=== PATIENT | female | born 1970 | race Caucasian/White ===

== ENCOUNTER 2017-01-11 12:54 | Emergency (ER) | payer BC ==
[~2017-01-11] VITALS: Ht 152.4 cm; Wt 106.8 kg
[~2017-01-11 12:54] MED LIST: BABY ASPIRIN81 M1 PO; BENADRYL25 MG PO; CELEXA; CELEXA20 MG PO; GLYBURIDE; GLYBURIDE5 MG PO; IMODIUM MS REL1 EACH PO; LIPITOR10 MG PO; METFORMIN PO; PEPCID40 MG PO; PERCOCET 5/31 TABLET PO; PREDNISONE20 MG PO; ZOFRAN4 MG PO
[2017-01-11 14:22] LABS: EOSINOPHIL (%) 1.8 % (0-5); EOSINOPHIL COUNT 0.1 K/uL (0-0.3); IMMATURE GRANULOCYTE (%) 0.6 % (0.0-0.7); INSTRUMENT ABS NEUTROPHIL CT 5.2 K/uL; LYMPHOCYTE COUNT 1.5 K/uL (1.0-2.8); MCH 28.4 PG (29.0-34.0); MCHC 32.4 G/DL (30.0-36.0); MCV 87.8 FL (83-99); MEAN PLAT.VOLUME 10.5 uM^3 (9.5-12.4); MONOCYTE (%) 4.6 % (3-12); MONOCYTE COUNT 0.3 K/uL (0-0.8); NEUTROPHIL (%) 71.4 % (45-76); NEUTROPHIL COUNT 5.2 K/uL (1.8-6.4); PLATELET COUNT 307 K/uL (156-360); RBC DIS.WIDTH-CV 13.2 % (11.8-14.6); RED BLOOD COUNT 4.33 M/uL (3.80-5.20); WHITE BLOOD COUNT 7.2 K/uL (4.1-10.2)
[2017-01-11 14:33] LABS: CHLORIDE 107 mEq/L (99-109); POTASSIUM 3.9 mEq/L (3.7-5.4); SODIUM 141 mEq/L (136-147)
[2017-01-11 14:34] LABS: GLUCOSE 229 mg/dL (70-99)
[2017-01-11 14:36] LABS: ANION GAP 11 MEQ/L (2-14)
[2017-01-11 14:38] LABS: GFR ESTIMATE (CALCULATED) > 59 mL/min/
[2017-01-11 14:39] LABS: UREA NITROGEN (BUN) 13 mg/dL (9-23)
[2017-01-11] MEDS ORDERED: BACTRIM,SEPT1 TABLET PO (14:54)
[2017-01-11 15:27] VITALS: BP 123/69
[2017-01-13] MEDS ORDERED: BACTRIM,SEPT1 TABLET PO (17:38)
== END 2017-01-11 15:35 | disposition home or self-care (01) ==
LOC: EME 12:54 → RME 12:54
PROVIDERS: Physician Assistant
DX: L02.31 Cutaneous abscess of buttock (principal); L03.317 Cellulitis of buttock; E11.9 Type 2 diabetes mellitus without complications; Z79.84 Long term (current) use of oral hypoglycemic drugs
CPT/HCPCS: 80048; 85025; 99281; 99284; J0696; J7050

== ENCOUNTER 2017-06-19 09:04 | Inpatient (IN) | payer BC ==
[~2017-06-19] VITALS: Ht 152.4 cm; Wt 107.8 kg
[~2017-06-19 09:04] MED LIST changes: +BACTRIM,SEPT1 TABLET PO; +GLUCOPHAGE1000 MG PO; -METFORMIN PO
[2017-06-19 10:06] LABS: EOSINOPHIL (%) 0.5 % (0-5); EOSINOPHIL COUNT 0.1 K/uL (0-0.3); HEMATOCRIT 35.4 % (36.0-46.0); IMMATURE GRANULOCYTE (%) 0.6 % (0.0-0.7); IMMATURE GRANULOCYTE COUNT 0.1 K/uL; INSTRUMENT ABS NEUTROPHIL CT 8.7 K/uL; LYMPHOCYTE COUNT 1.2 K/uL (1.0-2.8); MCH 28.5 PG (29.0-34.0); MCHC 32.2 G/DL (30.0-36.0); MCV 88.5 FL (83-99); MEAN PLAT.VOLUME 10.1 uM^3 (9.5-12.4); MONOCYTE COUNT 0.6 K/uL (0-0.8); NEUTROPHIL (%) 81.8 % (45-76); NEUTROPHIL COUNT 8.7 K/uL (1.8-6.4); PLATELET COUNT 223 K/uL (156-360); RBC DIS.WIDTH-CV 13.4 % (11.8-14.6); RBC DIS.WIDTH-SD 43.6 % (39-53); WHITE BLOOD COUNT 10.7 K/uL (4.1-10.2)
[2017-06-19 10:15] LABS: CHLORIDE 99 mEq/L (99-109); POTASSIUM 3.5 mEq/L (3.7-5.4); SODIUM 134 mEq/L (136-147)
[2017-06-19 10:17] LABS: GLUCOSE 318 mg/dL (70-99)
[2017-06-19 10:18] LABS: ANION GAP 13 MEQ/L (2-14)
[2017-06-19 10:21] LABS: GFR ESTIMATE (CALCULATED) > 59 mL/min/
[2017-06-19 10:22] LABS: UREA NITROGEN (BUN) 6 mg/dL (9-23)
[2017-06-19 11:19] LABS: ADD MIUA? YES; BILIRUBIN NEGATIVE; BLOOD SMALL; COLOR YELLOW ((YELLOW)); GLUCOSE (STRIP) >=500; KETONES 5; LEUKOCYTES NEGATIVE; NITRITE NEGATIVE; PROTEIN (STRIP) NEGATIVE; SPECIFIC GRAVITY 1.035 (1.000-1.030); UROBILINOGEN 0.2 MG/DL (0.2-1.0)
[2017-06-19 11:34] LABS: EPITHELIAL CELLS 1+ /HPF
[2017-06-19 11:35] LABS: BACTERIA NONE SEEN /HPF; CASTS NONE SEEN /LPF; CRYSTALS NONE SEEN; MUCUS NONE SEEN /LPF; OTHER BUDDING YEAST RARE; RED BLOOD CELLS RARE /HPF (0-5); UCUL ADDED? NO; WHITE BLOOD CELLS RARE /HPF (0-5)
[2017-06-19] MEDS ORDERED: ASPIR 8181 M1 PO (16:31)
[2017-06-19] MEDS ORDERED: VITAMIN D31000 UNI2 PO (16:31)
[2017-06-19] MEDS ORDERED: ADVIL,NUPRIN,M200 MG PO (16:32)
[2017-06-19 18:36] VITALS: BP 128/69
[2017-06-19 23:35] VITALS: BP 119/70
[2017-06-20 05:03] VITALS: BP 130/69
[2017-06-20 06:39] LABS: EOSINOPHIL (%) 1.8 % (0-5); EOSINOPHIL COUNT 0.2 K/uL (0-0.3); HEMATOCRIT 31.9 % (36.0-46.0); IMMATURE GRANULOCYTE (%) 0.5 % (0.0-0.7); INSTRUMENT ABS NEUTROPHIL CT 6.7 K/uL; LYMPHOCYTE COUNT 1.3 K/uL (1.0-2.8); MCH 29.1 PG (29.0-34.0); MCHC 32.3 G/DL (30.0-36.0); MCV 90.1 FL (83-99); MEAN PLAT.VOLUME 10.7 uM^3 (9.5-12.4); MONOCYTE (%) 7.3 % (3-12); MONOCYTE COUNT 0.7 K/uL (0-0.8); NEUTROPHIL COUNT 6.7 K/uL (1.8-6.4); PLATELET COUNT 209 K/uL (156-360); RBC DIS.WIDTH-CV 13.6 % (11.8-14.6); RBC DIS.WIDTH-SD 45.1 % (39-53); RED BLOOD COUNT 3.54 M/uL (3.80-5.20); WHITE BLOOD COUNT 8.9 K/uL (4.1-10.2)
[2017-06-20 07:03] LABS: ANION GAP 7 MEQ/L (2-14); CHLORIDE 106 MEQ/L (99-109); GFR ESTIMATE (CALCULATED) > 59 mL/min/; GLUCOSE 142 mg/dL (70-99); POTASSIUM 4.1 MEQ/L (3.7-5.4); SAMPLE HEMOLYSIS CHECK 0; SAMPLE ICTERIC CHECK 0; SAMPLE LIPEMIA CHECK 0; SODIUM 138 MEQ/L (136-147); UREA NITROGEN (BUN) 5 mg/dL (9-23)
[2017-06-20 07:48] VITALS: BP 147/71
[2017-06-20 15:26] VITALS: BP 132/65
[2017-06-20 21:59] LABS: POINT-OF-CARE METER ID UU14208753
[2017-06-20 23:40] VITALS: BP 117/56
[2017-06-21 06:15] LABS: METH RESISTANT S AUREUS PCR NEGATIVE (NEGATIVE)
[2017-06-21 06:19] LABS: PROBE CHECK PASS; SPECIMEN PROCESSING CONTROL PASS
[2017-06-21 08:09] VITALS: BP 126/66
[2017-06-21 12:05] VITALS: BP 138/70
[2017-06-21 16:46] VITALS: BP 137/81
[2017-06-21 16:57] LABS: POINT-OF-CARE METER ID UU14117124
[2017-06-21 19:44] VITALS: BP 132/81
[2017-06-21 23:46] VITALS: BP 128/68
[2017-06-22 03:38] VITALS: BP 133/63
[2017-06-22 06:58] LABS: POINT-OF-CARE METER ID UU14117124
[2017-06-22 08:18] VITALS: BP 111/62
[2017-06-22 11:59] VITALS: BP 121/65
[2017-06-22 16:05] VITALS: BP 157/71
[2017-06-22 16:28] LABS: POINT-OF-CARE METER ID UU14117124
[2017-06-22 19:20] VITALS: BP 141/77
[2017-06-22 21:28] LABS: POINT-OF-CARE METER ID UU14117124
[2017-06-23] VITALS (8 sets, daily range): BP systolic 123–163; BP diastolic 7–92
[2017-06-23 05:18] LABS: POINT-OF-CARE METER ID UU13113725
[2017-06-23 08:44] LABS: Estimated Average Glucose 214 mg/dL (70-123); HEMOGLOBIN A1c (GLYCOHEMOGLOB) 9.1 % HGB (Below 5.7)
[2017-06-23 11:51] LABS: POINT-OF-CARE METER ID UU13113774
[2017-06-23 16:25] LABS: POINT-OF-CARE METER ID UU13113725
[2017-06-23 21:36] LABS: POINT-OF-CARE METER ID UU13113725
[2017-06-24 04:42] VITALS: BP 105/59
[2017-06-24 06:29] LABS: POINT-OF-CARE METER ID UU13113725
[2017-06-24 06:46] LABS: EOSINOPHIL (%) 4.1 % (0-5); EOSINOPHIL COUNT 0.2 K/uL (0-0.3); HEMATOCRIT 33.4 % (36.0-46.0); IMMATURE GRANULOCYTE (%) 3.5 % (0.0-0.7); IMMATURE GRANULOCYTE COUNT 0.2 K/uL; INSTRUMENT ABS NEUTROPHIL CT 2.9 K/uL; LYMPHOCYTE COUNT 1.4 K/uL (1.0-2.8); MCH 28.8 PG (29.0-34.0); MCV 89.8 FL (83-99); MEAN PLAT.VOLUME 10.1 uM^3 (9.5-12.4); MONOCYTE COUNT 0.4 K/uL (0-0.8); NEUTROPHIL (%) 57.4 % (45-76); NEUTROPHIL COUNT 2.9 K/uL (1.8-6.4); RBC DIS.WIDTH-CV 13.4 % (11.8-14.6); RBC DIS.WIDTH-SD 44.3 % (39-53); RED BLOOD COUNT 3.72 M/uL (3.80-5.20); WHITE BLOOD COUNT 5.1 K/uL (4.1-10.2)
[2017-06-24 07:09] LABS: ANION GAP 10 MEQ/L (2-14); CHLORIDE 101 MEQ/L (99-109); GFR ESTIMATE (CALCULATED) > 59 mL/min/; GLUCOSE 116 mg/dL (70-99); POTASSIUM 4.3 MEQ/L (3.7-5.4); SAMPLE HEMOLYSIS CHECK 0; SAMPLE ICTERIC CHECK 0; SAMPLE LIPEMIA CHECK 0; SODIUM 138 MEQ/L (136-147); UREA NITROGEN (BUN) 9 mg/dL (9-23)
[2017-06-24 07:30] LABS: PLATELET COUNT 297 K/uL (156-360)
[2017-06-24 09:32] VITALS: BP 140/71
[2017-06-24 11:31] VITALS: BP 124/64
[2017-06-24 11:50] LABS: POINT-OF-CARE METER ID UU13113774
[2017-06-24 17:20] LABS: POINT-OF-CARE METER ID UU13113725
[2017-06-24 21:08] LABS: POINT-OF-CARE METER ID UU13113725
[2017-06-24 23:52] VITALS: BP 136/74
[2017-06-25 06:23] LABS: POINT-OF-CARE METER ID UU13113725; POINT-OF-CARE USER ID 611181321
[2017-06-25 08:09] VITALS: BP 155/80
[2017-06-25 10:59] VITALS: BP 130/64
[2017-06-25 11:49] LABS: POINT-OF-CARE METER ID UU13113725
[2017-06-25 16:35] VITALS: BP 128/63
[2017-06-25 16:53] LABS: POINT-OF-CARE METER ID UU13113774
[2017-06-25 19:49] VITALS: BP 129/68
[2017-06-25 21:26] LABS: POINT-OF-CARE METER ID UU13113774
[2017-06-26 00:29] VITALS: BP 133/66
[2017-06-26 06:26] LABS: POINT-OF-CARE METER ID UU13113725
[2017-06-26 06:29] LABS: POINT-OF-CARE METER ID UU13113774
[2017-06-26 06:37] LABS: HEMATOCRIT 35.2 % (36.0-46.0); MCHC 32.4 G/DL (30.0-36.0); MCV 89.6 FL (83-99); MEAN PLAT.VOLUME 9.7 uM^3 (9.5-12.4); PLATELET COUNT 298 K/uL (156-360); RBC DIS.WIDTH-CV 13.2 % (11.8-14.6); RBC DIS.WIDTH-SD 43.3 % (39-53); RED BLOOD COUNT 3.93 M/uL (3.80-5.20)
[2017-06-26 07:00] LABS: ALKALINE PHOSPHATASE 57 IU/L (3-129); ANION GAP 10 MEQ/L (2-14); CHLORIDE 99 MEQ/L (99-109); GFR ESTIMATE (CALCULATED) > 59 mL/min/; GLUCOSE 103 mg/dL (70-99); POTASSIUM 4.3 MEQ/L (3.7-5.4); SAMPLE HEMOLYSIS CHECK 0; SAMPLE ICTERIC CHECK 0; SAMPLE LIPEMIA CHECK 0; SODIUM 138 MEQ/L (136-147); TOTAL BILIRUBIN 0.4 MG/DL (0.0-1.0); UREA NITROGEN (BUN) 10 mg/dL (9-23)
[2017-06-26 07:27] VITALS: BP 121/58
[2017-06-26 09:47] VITALS: BP 150/92
[2017-06-26 12:34] LABS: POINT-OF-CARE METER ID UU13113675
[2017-06-26 13:39] VITALS: BP 139/71
[2017-06-26 16:08] VITALS: BP 120/57
[2017-06-26 16:14] LABS: POINT-OF-CARE METER ID UU13113725
[2017-06-26 20:15] LABS: POINT-OF-CARE METER ID UU13113725
[2017-06-26 23:36] VITALS: BP 107/50
[2017-06-27 06:36] VITALS: BP 130/73
[2017-06-27 06:44] LABS: POINT-OF-CARE METER ID UU13113774
[2017-06-27 11:38] LABS: POINT-OF-CARE METER ID UU13113774
[2017-06-27 15:02] VITALS: BP 134/72
[2017-06-27] MEDS ORDERED: LINEZOLID600 MG PO (15:20)
[2017-06-27] MEDS ORDERED: KENALOG,ARISTOC80 GM TP (15:27)
[2017-06-27] MEDS ORDERED: OXYCODONE HCL5 MG PO (15:27)
[2017-06-27] MEDS ORDERED: DOXYCYCLINE HY100 MG PO (15:27)
[2017-06-27] MEDS ORDERED: BENADRYL50 MG PO (15:27)
[2017-06-27] MEDS ORDERED: BACTROBAN NASAL1 G1 BOTH NARES (15:28)
== END 2017-06-27 16:07 | disposition home health service (06) | DRG 603 ==
LOC: EME 09:04 → 3EAST 16:45 → EDOF 16:45 → ENRESERV 17:02 → 3EAST 17:57 → ENRESERV 06-23 00:51 → 5EAST 06-23 02:28
PROVIDERS: Family Medicine; Internal Medicine; Internal Medicine Infectious Disease
PROC: 0H97XZZ Drainage of Abdomen Skin, External Approach (ICD-10-PCS; principal; 2017-06-23)
PROC: 0J983ZZ Drainage of Abdomen Subcutaneous Tissue and Fascia, Percutaneous Approach (ICD-10-PCS; 2017-06-26)
DX: L03.311 Cellulitis of abdominal wall (principal); L02.211 Cutaneous abscess of abdominal wall; B95.61 Methicillin susceptible Staphylococcus aureus infection as the cause of diseases classified elsewhere; L02.221 Furuncle of abdominal wall; L02.32 Furuncle of buttock; L73.9 Follicular disorder, unspecified; L27.0 Generalized skin eruption due to drugs and medicaments taken internally; T36.1X5A Adverse effect of cephalosporins and other beta-lactam antibiotics, initial encounter; T36.8X5A Adverse effect of other systemic antibiotics, initial encounter; I10 Essential (primary) hypertension; J44.9 Chronic obstructive pulmonary disease, unspecified; E78.5 Hyperlipidemia, unspecified; E11.9 Type 2 diabetes mellitus without complications; F32.9 Major depressive disorder, single episode, unspecified; E66.01 Morbid (severe) obesity due to excess calories; Z68.42 Body mass index [BMI] 45.0-49.9, adult; Z87.891 Personal history of nicotine dependence; Z87.442 Personal history of urinary calculi; Z79.84 Long term (current) use of oral hypoglycemic drugs; Z79.82 Long term (current) use of aspirin
CPT/HCPCS: 74177; 80048; 80053; 80202; 81003; 82565; 82948; 83036; 83605; 84520; 85025; 85027; 87040; 87070; 87075; 87077; 87147; 87186; 87205; 87641; 94799; 99281; 99284; J0131; J0690; J0744; J1650; J1815; J1956; J2250; J2405; J3010; J3370; J7030; Q0177; S0020

== ENCOUNTER 2017-09-10 16:46 | Emergency (ER) | payer BC ==
[~2017-09-10] VITALS: Ht 152.4 cm; Wt 106.6 kg
[~2017-09-10 16:46] MED LIST changes: +ADVIL,NUPRIN,M200 MG PO; +ASPIR 8181 M1 PO; +BACTROBAN NASAL1 G1 BOTH NARES; +BENADRYL50 MG PO; +DOXYCYCLINE HY100 MG PO; +KENALOG,ARISTOC80 GM TP; +LINEZOLID600 MG PO; +OXYCODONE HCL5 MG PO; +VITAMIN D31000 UNI2 PO
[2017-09-10] MEDS ORDERED: DELTASONE20 M1 PO (18:57)
[2017-09-10] MEDS ORDERED: PEPCID20 MG PO (18:57)
[2017-09-10 19:08] VITALS: BP 150/97
== END 2017-09-10 19:09 | disposition home or self-care (01) ==
LOC: EME 16:46
DX: T78.40XA Allergy, unspecified, initial encounter (principal); Z87.442 Personal history of urinary calculi; J44.9 Chronic obstructive pulmonary disease, unspecified; E11.9 Type 2 diabetes mellitus without complications; I10 Essential (primary) hypertension; E78.5 Hyperlipidemia, unspecified; F32.9 Major depressive disorder, single episode, unspecified; Z79.4 Long term (current) use of insulin; Z87.891 Personal history of nicotine dependence
CPT/HCPCS: 93005; 99281; 99284; J7512; Q0177

== ENCOUNTER 2017-09-27 10:08 | Observation (INO) | payer BC ==
[~2017-09-27] VITALS: Ht 152.4 cm; Wt 104.7 kg
[~2017-09-27 10:08] MED LIST changes: +DELTASONE20 M1 PO; +PEPCID20 MG PO
[2017-09-27 12:00] LABS: HEMATOCRIT 38.8 % (36.0-46.0); HEMOGLOBIN 12.9 G/DL (11.9-15.5); MCH 28.9 PG (29.0-34.0); MCHC 33.2 G/DL (30.0-36.0); MCV 86.8 FL (83-99); PLATELET COUNT 244 K/uL (156-360); RBC DIS.WIDTH-SD 47.8 % (39-53); RED BLOOD COUNT 4.47 M/uL (3.80-5.20); WHITE BLOOD COUNT 6.2 K/uL (4.1-10.2)
[2017-09-27 12:11] LABS: CHLORIDE 108 mEq/L (99-109); POTASSIUM 3.9 mEq/L (3.7-5.4); SODIUM 138 mEq/L (136-147)
[2017-09-27 12:13] LABS: GLUCOSE 178 mg/dL (70-99)
[2017-09-27 12:17] LABS: CREATININE 0.9 mg/dL (0.6-1.3); GFR ESTIMATE (CALCULATED) > 59 mL/min/
[2017-09-27 12:18] LABS: UREA NITROGEN (BUN) 12 mg/dL (9-23)
[2017-09-27 12:22] LABS: TROP-I INTERPRETATION NEGATIVE; TROPONIN-I < 0.01 ng/mL (0.0-0.30)
[2017-09-27] MEDS ORDERED: BENADRYL25 MG PO (14:57)
[2017-09-27 16:27] LABS: TROP-I INTERPRETATION NEGATIVE; TROPONIN-I < 0.01 ng/mL (0.0-0.30)
[2017-09-27 16:31] LABS: HDL CHOLESTEROL 59 MG/DL (Desirable>=50); LDL CHOLESTEROL 148 mg/dL (Desirable<100); NON-HDL CHOLESTEROL 184 mg/dL (Desirable<160); TOTAL CHOLESTEROL 243 mg/dL (Desirable<200); TRIGLYCERIDES 181 MG/DL (Normal: <150)
[2017-09-27 20:33] VITALS: BP 111/63
[2017-09-27 22:24] LABS: TROP-I INTERPRETATION NEGATIVE; TROPONIN-I < 0.01 ng/mL (0.0-0.30)
[2017-09-27 23:43] VITALS: BP 130/73
[2017-09-28 04:38] VITALS: BP 124/63
[2017-09-28 05:36] LABS: TROP-I INTERPRETATION NEGATIVE; TROPONIN-I < 0.01 ng/mL (0.0-0.30)
[2017-09-28 05:42] LABS: HEMOGLOBIN 11.5 G/DL (11.9-15.5); MCHC 31.9 G/DL (30.0-36.0); MCV 87.6 FL (83-99); PLATELET COUNT 224 K/uL (156-360); RBC DIS.WIDTH-CV 14.9 % (11.8-14.6); RBC DIS.WIDTH-SD 47.7 % (39-53); RED BLOOD COUNT 4.11 M/uL (3.80-5.20)
[2017-09-28 05:53] LABS: CHLORIDE 107 MEQ/L (99-109); CREATININE 0.8 MG/DL (0.6-1.3); GFR ESTIMATE (CALCULATED) > 59 mL/min/; GLUCOSE 132 mg/dL (70-99); POTASSIUM 4.1 MEQ/L (3.7-5.4); SODIUM 139 MEQ/L (136-147); UREA NITROGEN (BUN) 14 mg/dL (9-23)
[2017-09-28 05:54] LABS: HDL CHOLESTEROL 43 MG/DL (Desirable>=50); LDL CHOLESTEROL 138 mg/dL (Desirable<100); NON-HDL CHOLESTEROL 189 mg/dL (Desirable<160); TOTAL CHOLESTEROL 232 mg/dL (Desirable<200); TRIGLYCERIDES 257 MG/DL (Normal: <150)
[2017-09-28 08:20] VITALS: BP 133/73
[2017-09-28] MEDS ORDERED: ATORVASTATIN CA40 MG PO (10:47)
[2017-09-28 12:00] VITALS: BP 122/78
[2017-09-28 12:33] LABS: HEMOGLOBIN A1c (GLYCOHEMOGLOB) 8.2 % (Below 5.7)
== END 2017-09-28 14:02 | disposition home or self-care (01) ==
LOC: EME 10:08 → RME 10:08 → 5WEST 14:58 → EDOF 14:58 → ENRESERV 15:03 → 5WEST 19:00
PROVIDERS: Hospitalist
DX: R07.9 Chest pain, unspecified (principal); E66.9 Obesity, unspecified; Z68.42 Body mass index [BMI] 45.0-49.9, adult; E78.5 Hyperlipidemia, unspecified; E11.65 Type 2 diabetes mellitus with hyperglycemia; R06.09 Other forms of dyspnea; Z87.891 Personal history of nicotine dependence; Z90.49 Acquired absence of other specified parts of digestive tract; Z82.5 Family history of asthma and other chronic lower respiratory diseases; Z80.9 Family history of malignant neoplasm, unspecified; Z87.442 Personal history of urinary calculi; Z79.82 Long term (current) use of aspirin
CPT/HCPCS: 71046; 80048; 80061; 82948; 83036; 84484; 85027; 93005; G0378; J1650; J2405; S0028

== ENCOUNTER 2017-10-31 07:14 | Emergency (ER) | payer BC ==
[~2017-10-31] VITALS: Ht 152.4 cm; Wt 106.9 kg
[~2017-10-31 07:14] MED LIST changes: +ATORVASTATIN CA40 MG PO
[2017-10-31 07:40] LABS: HEMATOCRIT 39.3 % (36.0-46.0); HEMOGLOBIN 13.2 G/DL (11.9-15.5); MCH 29.4 PG (29.0-34.0); MCHC 33.6 G/DL (30.0-36.0); MCV 87.5 FL (83-99); PLATELET COUNT 249 K/uL (156-360); RBC DIS.WIDTH-SD 44.8 % (39-53); RED BLOOD COUNT 4.49 M/uL (3.80-5.20); WHITE BLOOD COUNT 8.7 K/uL (4.1-10.2)
[2017-10-31 07:57] LABS: APPEARANCE SL.HAZY ((CLEAR)); BILIRUBIN NEGATIVE; BLOOD LARGE; COLOR YELLOW ((YELLOW)); GLUCOSE (STRIP) >=500; KETONES NEGATIVE; LEUKOCYTES NEGATIVE; NITRITE NEGATIVE; PROTEIN (STRIP) NEGATIVE; SPECIFIC GRAVITY 1.033 (1.000-1.030); UROBILINOGEN 0.2 MG/DL (0.2-1.0)
[2017-10-31 08:02] LABS: CHLORIDE 106 mEq/L (99-109); SODIUM 137 mEq/L (136-147)
[2017-10-31 08:04] LABS: GLUCOSE 307 mg/dL (70-99)
[2017-10-31 08:04] LABS: BACTERIA NONE SEEN /HPF; CALCIUM OXALATE CRYSTALS 1+ /HPF; EPITHELIAL CELLS RARE /HPF; MUCUS TRACE /LPF; RED BLOOD CELLS TNTC /HPF (0-5); UCUL ADDED? YES
[2017-10-31 08:08] LABS: CREATININE 0.9 mg/dL (0.6-1.3); GFR ESTIMATE (CALCULATED) > 59 mL/min/; UREA NITROGEN (BUN) 17 mg/dL (9-23)
[2017-10-31] MEDS ORDERED: METFORMIN HCL1000 MG PO (08:23)
[2017-10-31] MEDS ORDERED: DIABETA5 MG PO (08:23)
[2017-10-31] MEDS ORDERED: FLAGYL500 MG PO (09:24)
[2017-10-31] MEDS ORDERED: TYLENOL WITH C1 EACH PO (09:24)
[2017-10-31] MEDS ORDERED: CIPRO XR 500 M500 M1 PO (09:24)
[2017-10-31] MEDS ORDERED: CIPRO500 MG PO (09:28)
[2017-10-31 09:44] VITALS: BP 113/67
== END 2017-10-31 09:45 | disposition home or self-care (01) ==
LOC: EME 07:14
PROVIDERS: Emergency Medicine
DX: N39.0 Urinary tract infection, site not specified (principal); K57.32 Diverticulitis of large intestine without perforation or abscess without bleeding; N20.0 Calculus of kidney; E11.9 Type 2 diabetes mellitus without complications; J44.9 Chronic obstructive pulmonary disease, unspecified; I10 Essential (primary) hypertension; E78.5 Hyperlipidemia, unspecified; F32.9 Major depressive disorder, single episode, unspecified; Z79.82 Long term (current) use of aspirin; Z79.84 Long term (current) use of oral hypoglycemic drugs; Z87.891 Personal history of nicotine dependence; Z87.442 Personal history of urinary calculi
CPT/HCPCS: 74176; 80048; 81003; 85027; 87086; 99281; 99285; J2270; J2405; J7030

== ENCOUNTER 2017-11-06 18:19 | Emergency (ER) | payer BC ==
[~2017-11-06] VITALS: Ht 152.4 cm; Wt 107.6 kg
[~2017-11-06 18:19] MED LIST changes: +CIPRO XR 500 M500 M1 PO; +CIPRO500 MG PO; +DIABETA5 MG PO; +FLAGYL500 MG PO; +METFORMIN HCL1000 MG PO; +TYLENOL WITH C1 EACH PO
[2017-11-06 18:41] LABS: APPEARANCE CLEAR ((CLEAR)); BILIRUBIN NEGATIVE; BLOOD SMALL; COLOR YELLOW ((YELLOW)); GLUCOSE (STRIP) 150; KETONES NEGATIVE; LEUKOCYTES TRACE; NITRITE NEGATIVE; PROTEIN (STRIP) NEGATIVE; SPECIFIC GRAVITY 1.014 (1.000-1.030); UROBILINOGEN 0.2 MG/DL (0.2-1.0)
[2017-11-06 18:50] LABS: BACTERIA RARE /HPF; EPITHELIAL CELLS RARE /HPF; HYALINE CASTS 0-5 /LPF; MUCUS TRACE /LPF; RED BLOOD CELLS 0-5 /HPF (0-5); UCUL ADDED? NO; WHITE BLOOD CELLS 0-5 /HPF (0-5)
[2017-11-06 18:57] LABS: HEMATOCRIT 35.3 % (36.0-46.0); HEMOGLOBIN 11.8 G/DL (11.9-15.5); MCH 28.9 PG (29.0-34.0); MCHC 33.4 G/DL (30.0-36.0); MCV 86.3 FL (83-99); PLATELET COUNT 234 K/uL (156-360); RBC DIS.WIDTH-CV 13.4 % (11.8-14.6); RBC DIS.WIDTH-SD 42.3 % (39-53); RED BLOOD COUNT 4.09 M/uL (3.80-5.20); WHITE BLOOD COUNT 6.7 K/uL (4.1-10.2)
[2017-11-06 19:10] LABS: ALBUMIN 3.8 g/dL (3.2-4.8); CHLORIDE 103 mEq/L (99-109); POTASSIUM 3.7 mEq/L (3.7-5.4); SODIUM 139 mEq/L (136-147)
[2017-11-06 19:12] LABS: GLUCOSE 215 mg/dL (70-99)
[2017-11-06 19:13] LABS: TOTAL PROTEIN 6.6 g/dL (6.4-8.3)
[2017-11-06 19:14] LABS: TOTAL BILIRUBIN 0.4 mg/dL (0.0-1.0)
[2017-11-06 19:16] LABS: ALKALINE PHOSPHATASE 67 IU/L (3-129); GFR ESTIMATE (CALCULATED) 34 mL/min/
[2017-11-06 19:17] LABS: UREA NITROGEN (BUN) 19 mg/dL (9-23)
[2017-11-06 19:18] LABS: AST (GOT) 17 IU/L (2-34)
[2017-11-06 19:19] LABS: ALT (GPT) 14 IU/L (3-49)
[2017-11-06 19:21] LABS: CREATININE 1.7 mg/dL (0.6-1.3)
[2017-11-06 19:25] LABS: QUANTITATIVE HCG < 4.0 MIU/ML
[2017-11-06 21:35] LABS: ALBUMIN 3.5 g/dL (3.2-4.8); CHLORIDE 106 mEq/L (99-109); POTASSIUM 3.7 mEq/L (3.7-5.4); SODIUM 139 mEq/L (136-147)
[2017-11-06 21:37] LABS: GLUCOSE 172 mg/dL (70-99); TOTAL PROTEIN 5.7 g/dL (6.4-8.3)
[2017-11-06 21:40] LABS: TOTAL BILIRUBIN 0.3 mg/dL (0.0-1.0)
[2017-11-06 21:41] LABS: ALKALINE PHOSPHATASE 60 IU/L (3-129); CREATININE 1.4 mg/dL (0.6-1.3); GFR ESTIMATE (CALCULATED) 43 mL/min/
[2017-11-06 21:42] LABS: UREA NITROGEN (BUN) 19 mg/dL (9-23)
[2017-11-06] MEDS ORDERED: ZOFRAN4 MG PO (21:42)
[2017-11-06] MEDS ORDERED: NORCO 5/3251 TABLET PO (21:42)
[2017-11-06 21:43] LABS: AST (GOT) 13 IU/L (2-34)
[2017-11-06 21:44] LABS: ALT (GPT) 12 IU/L (3-49)
[2017-11-06 22:03] VITALS: BP 140/93
== END 2017-11-06 22:04 | disposition home or self-care (01) ==
LOC: EME 18:19
PROVIDERS: Physician Assistant
DX: K57.30 Diverticulosis of large intestine without perforation or abscess without bleeding (principal); R11.2 Nausea with vomiting, unspecified; K76.0 Fatty (change of) liver, not elsewhere classified; E11.65 Type 2 diabetes mellitus with hyperglycemia; Z79.84 Long term (current) use of oral hypoglycemic drugs; E78.5 Hyperlipidemia, unspecified; I10 Essential (primary) hypertension; J44.9 Chronic obstructive pulmonary disease, unspecified; Z87.442 Personal history of urinary calculi; Z79.82 Long term (current) use of aspirin; F32.9 Major depressive disorder, single episode, unspecified; Z87.891 Personal history of nicotine dependence
CPT/HCPCS: 74177; 80053; 81003; 84702; 85027; 99281; 99284; J1885; J7030

== ENCOUNTER 2017-12-29 07:27 | Emergency (ER) | payer BC ==
[~2017-12-29] VITALS: Ht 154.9 cm; Wt 106.0 kg
[~2017-12-29 07:27] MED LIST changes: +NORCO 5/3251 TABLET PO
[2017-12-29 08:10] LABS: APPEARANCE SL.HAZY ((CLEAR)); BILIRUBIN NEGATIVE; BLOOD MODERATE; COLOR YELLOW ((YELLOW)); GLUCOSE (STRIP) >=500; KETONES NEGATIVE; LEUKOCYTES NEGATIVE; NITRITE NEGATIVE; PROTEIN (STRIP) NEGATIVE; SPECIFIC GRAVITY 1.025 (1.000-1.030); UROBILINOGEN 0.2 MG/DL (0.2-1.0)
[2017-12-29 08:13] LABS: HEMATOCRIT 38.3 % (36.0-46.0); HEMOGLOBIN 12.8 G/DL (11.9-15.5); MCH 29.1 PG (29.0-34.0); MCHC 33.4 G/DL (30.0-36.0); PLATELET COUNT 222 K/uL (156-360); RBC DIS.WIDTH-CV 13.8 % (11.8-14.6); RBC DIS.WIDTH-SD 43.9 % (39-53)
[2017-12-29 08:14] LABS: BACTERIA NONE SEEN /HPF; CALCIUM OXALATE CRYSTALS 2+ /HPF; EPITHELIAL CELLS 1+ /HPF; MUCUS 2+ /LPF; RED BLOOD CELLS 20-30 /HPF (0-5); UCUL ADDED? NO; WHITE BLOOD CELLS 0-5 /HPF (0-5)
[2017-12-29 09:02] LABS: ALBUMIN 3.7 G/DL (3.2-4.8); CHLORIDE 103 MEQ/L (99-109); DIRECT BILIRUBIN 0.1 mg/dL (0.0-0.3); POTASSIUM 3.9 MEQ/L (3.7-5.4); SODIUM 138 MEQ/L (136-147); TOTAL BILIRUBIN 0.5 MG/DL (0.0-1.0)
[2017-12-29 09:08] LABS: ALKALINE PHOSPHATASE 69 IU/L (3-129); ALT (GPT) 18 IU/L (3-49); AST (GOT) 17 IU/L (2-34); CREATININE 0.7 MG/DL (0.6-1.3); GFR ESTIMATE (CALCULATED) > 59 mL/min/; GLUCOSE 234 mg/dL (70-99); LIPASE 133 U/L (1.0-51.0); TOTAL PROTEIN 6.1 G/DL (6.4-8.3); UREA NITROGEN (BUN) 11 mg/dL (9-23)
[2017-12-29 09:11] LABS: QUANTITATIVE HCG < 4.0 MIU/ML
[2017-12-29] MEDS ORDERED: ULTRAM50 MG PO (11:09)
[2017-12-29 11:35] VITALS: BP 123/91
== END 2017-12-29 11:39 | disposition home or self-care (01) ==
LOC: EME 07:27
DX: R10.32 Left lower quadrant pain (principal); K57.30 Diverticulosis of large intestine without perforation or abscess without bleeding; Z87.442 Personal history of urinary calculi; J44.9 Chronic obstructive pulmonary disease, unspecified; I10 Essential (primary) hypertension; E78.5 Hyperlipidemia, unspecified; E11.9 Type 2 diabetes mellitus without complications; F32.9 Major depressive disorder, single episode, unspecified; Z90.49 Acquired absence of other specified parts of digestive tract; Z87.891 Personal history of nicotine dependence; Z79.84 Long term (current) use of oral hypoglycemic drugs; Z79.82 Long term (current) use of aspirin
CPT/HCPCS: 74176; 80048; 80076; 81003; 83690; 84702; 85027; 99281; 99283

== ENCOUNTER 2018-04-11 19:35 | Emergency (ER) | payer BC ==
[~2018-04-11] VITALS: Ht 157.5 cm; Wt 107.4 kg
[~2018-04-11 19:35] MED LIST changes: +ULTRAM50 MG PO
[2018-04-11 20:16] LABS: HEMATOCRIT 37.5 % (36.0-46.0); HEMOGLOBIN 12.6 G/DL (11.9-15.5); MCH 28.8 PG (29.0-34.0); MCHC 33.6 G/DL (30.0-36.0); MCV 85.8 FL (83-99); PLATELET COUNT 260 K/uL (156-360); RBC DIS.WIDTH-CV 13.5 % (11.8-14.6); RBC DIS.WIDTH-SD 42.3 % (39-53); RED BLOOD COUNT 4.37 M/uL (3.80-5.20); WHITE BLOOD COUNT 6.6 K/uL (4.1-10.2)
[2018-04-11 20:33] LABS: CHLORIDE 106 mEq/L (99-109); SODIUM 136 mEq/L (136-147)
[2018-04-11 20:35] LABS: GLUCOSE 306 mg/dL (70-99)
[2018-04-11 20:39] LABS: CREATININE 0.9 mg/dL (0.6-1.3); GFR ESTIMATE (CALCULATED) > 59 mL/min/
[2018-04-11 20:40] LABS: APPEARANCE CLEAR ((CLEAR)); BILIRUBIN NEGATIVE; BLOOD MODERATE; COLOR STRAW ((YELLOW)); GLUCOSE (STRIP) >=500; KETONES NEGATIVE; LEUKOCYTES NEGATIVE; NITRITE NEGATIVE; PROTEIN (STRIP) NEGATIVE; SPECIFIC GRAVITY 1.025 (1.000-1.030); UROBILINOGEN 0.2 MG/DL (0.2-1.0)
[2018-04-11 20:40] LABS: UREA NITROGEN (BUN) 13 mg/dL (9-23)
[2018-04-11 20:47] LABS: QUANTITATIVE HCG < 4.0 MIU/ML
[2018-04-11 21:01] LABS: BACTERIA NONE SEEN /HPF; EPITHELIAL CELLS RARE /HPF; MUCUS TRACE /LPF; RED BLOOD CELLS TNTC /HPF (0-5); UCUL ADDED? YES; WHITE BLOOD CELLS 0-5 /HPF (0-5)
[2018-04-12] MEDS ORDERED: PERCOCET 5/31 TABLET PO (00:29)
[2018-04-12] MEDS ORDERED: ZOFRAN ODT4 MG PO (00:29)
[2018-04-12 01:34] VITALS: BP 144/95
== END 2018-04-12 01:36 | disposition home or self-care (01) ==
LOC: EXP 19:35 → EME 19:35 → EXP 04-12 01:36
DX: R10.12 Left upper quadrant pain (principal); R31.9 Hematuria, unspecified; Z87.442 Personal history of urinary calculi; E11.9 Type 2 diabetes mellitus without complications; E78.5 Hyperlipidemia, unspecified; J44.9 Chronic obstructive pulmonary disease, unspecified; F32.9 Major depressive disorder, single episode, unspecified; Z87.891 Personal history of nicotine dependence; Z79.84 Long term (current) use of oral hypoglycemic drugs
CPT/HCPCS: 74176; 80048; 81003; 84702; 85027; 87086; 99281; 99285; J2405; J3010; J7030